=== PATIENT | male | born 1970 | race Caucasian/White ===

== ENCOUNTER 2025-04-14 12:36 | Inpatient (IN) | payer BC ==
[2025-04-14] VITALS (8 sets, daily range): BP systolic 95–97; BP diastolic 51–62; TEMP 98.1; O2SAT 93–98
[~2025-04-14] VITALS: Ht 180.3 cm; Wt 92.1 kg
[2025-04-14 13:16] LABS: PLATELET COUNT (AUTO) 184 K/uL (150-450); RED BLOOD CELL COUNT(AUTO) 5.51 MIL/uL (4.5-6.0); RED CELL DISTRIBUTION WIDTH 17.9 % (11.5-15.0); WHITE BLOOD COUNT (AUTO) 8.6 K/uL (4.3-11.0)
[2025-04-14 13:20] LABS: CALCIUM, SERUM 9.5 mg/dL (8.5-10.1); CREATININE 1.4 mg/dL (0.6-1.3); SODIUM SERUM 135 mmol/L (136-145); UREA NITROGEN, BLOOD 12 mg/dL (7-18)
[2025-04-14] MEDS ORDERED: IPRATROPIUM NEB FS 0.5 MG/2.5 ML AMPUL.NEB ONE (13:23)
[2025-04-14] MEDS ORDERED: ALBUTEROL FS 2.5 MG/3 ML VIAL.NEB ONE (13:23)
[2025-04-14 13:26] LABS: ASPARTATE AMINOTRANSFERASE 64 U/L (15-37); TOTAL PROTEIN, SERUM 7.8 g/dL (6.4-8.2)
[2025-04-14] MEDS ORDERED: IOHEXOL-300 100 ML VIAL IV ONE (13:30)
[2025-04-14] MEDS: IV NS 0.9% 1,000 ML BAG IV ONE ×2 (13:30→15:30)
[2025-04-14] MEDS: ALBUTEROL FS 2.5 MG/3 ML VIAL.NEB NEB ONE (13:31)
[2025-04-14] MEDS ORDERED: IV NS 0.9% 250 ML IV ONE (13:31)
[2025-04-14] MEDS: IPRATROPIUM NEB FS 0.5 MG/2.5 ML AMPUL.NEB NEB ONE (13:31)
[2025-04-14 13:34] LABS: LACTIC ACID 2.8 mmol/L (0.4-2.0)
[2025-04-14 13:52] LABS: INR 1.06 (0.91-1.10)
[2025-04-14] MEDS: PIPERACILLIN /TAZOBACTAM 3.375 G in IV D5W 50 ML IV ONE (14:00)
[2025-04-14] MEDS ORDERED: FLUT16SP16 NS (14:14)
[2025-04-14] MEDS ORDERED: QUET50TA PO (14:14)
[2025-04-14] MEDS ORDERED: GABA300C PO (14:14)
[2025-04-14] MEDS ORDERED: MULT-594 PO (14:14)
[2025-04-14] MEDS ORDERED: BACL10TA PO (14:14)
[2025-04-14] MEDS ORDERED: LORA10TA7 PO (14:14)
[2025-04-14] MEDS ORDERED: HYDR25CA PO (14:14)
[2025-04-14] MEDS ORDERED: CARI3CAP PO (14:14)
[2025-04-14] MEDS ORDERED: TRELEGY ELLIPTA IH (14:14)
[2025-04-14] MEDS ORDERED: CALC-1143 PO (14:14)
[2025-04-14] MEDS ORDERED: ASCO100058 PO (14:14)
[2025-04-14] MEDS ORDERED: MAGN100T PO (14:14)
[2025-04-14] MEDS ORDERED: DILT180C93 PO (14:14)
[2025-04-14] MEDS ORDERED: FAMO20TA80 PO (14:14)
[2025-04-14] MEDS ORDERED: PSYL0.4C2 PO (14:14)
[2025-04-14] MEDS ORDERED: PANT40TA2 PO (14:14)
[2025-04-14] MEDS ORDERED: ACET-2030 PO (14:14)
[2025-04-14] MEDS ORDERED: ALBU8.5H8 IH (14:14)
[2025-04-14] MEDS ORDERED: SERT50TA PO (14:14)
[2025-04-14] MEDS ORDERED: PIPERACI/TAZO 3.375GM/D5W 50ML PB IV ONE (14:37)
[2025-04-14] MEDS ORDERED: BACLOFEN (10 MG) 10 MG TABLET PO PRN (16:00)
[2025-04-14] MEDS ORDERED: MAG HYDROX/AL HYDROX/SIMETH 30 ML UDC PO PRN (16:00)
[2025-04-14] MEDS ORDERED: MAGNESIUM HYDROXIDE 30 ML UDC PO PRN (16:00)
[2025-04-14] MEDS ORDERED: ONDANSETRON HCL/PF 4 MG/2 ML VIAL IVP PRN (16:00)
[2025-04-14] MEDS ORDERED: Medication Not On Formulary EA ([Trelegy Ellipta] 1 PUFF) IH PRN (16:00)
[2025-04-14] MEDS ORDERED: GABAPENTIN 300 MG CAPSULE PO PRN (16:00)
[2025-04-14] MEDS ORDERED: ACETAMINOPHEN 325 MG TABLET PO PRN (16:00)
[2025-04-14] MEDS ORDERED: HYDROCODONE/APAP 10/325MG TABLET PO PRN (16:00)
[2025-04-14] MEDS ORDERED: Z GUARD REMEDY 4 OZ OINT TP PRN (16:00)
[2025-04-14] MEDS ORDERED: QUETIAPINE FUMARATE 25 MG TABLET PO PRN (16:30)
[2025-04-14] MEDS ORDERED: ALBUTEROL FS 2.5 MG/3 ML VIAL.NEB NEB PRN (16:30)
[2025-04-14 17:25] LABS: APPEARANCE,URINE CLEAR (CLEAR); BLOOD, URINE NEGATIVE Ery/uL (NEGATIVE); LEUKOCYTE ESTERASE ,URINE NEGATIVE (NEGATIVE); NITRITE, URINE NEGATIVE (NEGATIVE); UGLUCOSE NEGATIVE (NEGATIVE)
[2025-04-14] MEDS ORDERED: FLUTICASONE PROPIONATE 16 GM BOTTLE NS PRN (18:00)
[2025-04-14] MEDS ORDERED: PIPERACILLIN /TAZOBACTAM 3.375 G in IV D5W 50 ML IV SCH (18:00)
[2025-04-14] MEDS: IV NS 0.9% 1,000 ML IV PRN (18:05)
[2025-04-14] MEDS: NICOTINE PATCH (14MG) 14 MG PATCH.TD24 TD SCH (18:17)
[2025-04-14] MEDS: PIPERACILLIN /TAZOBACTAM 3.375 G in IV D5W 100 ML IV SCH (19:15)
[2025-04-14] MEDS: ALBUTEROL FS 2.5 MG/3 ML VIAL.NEB NEB SCH (20:29)
[2025-04-14] MEDS: IPRATROPIUM NEB FS 0.5 MG/2.5 ML AMPUL.NEB NEB SCH (20:29)
[2025-04-14] MEDS ORDERED: MAGNESIUM GLYCINATE 400 MG PO SCH (22:00)
[2025-04-15] VITALS (11 sets, daily range): BP systolic 102–111; BP diastolic 67–83; TEMP 97.2–97.7; O2SAT 94–99
[2025-04-15 06:41] LABS: PLATELET COUNT (AUTO) 175 K/uL (150-450); RED BLOOD CELL COUNT(AUTO) 5.03 MIL/uL (4.5-6.0); RED CELL DISTRIBUTION WIDTH 18.4 % (11.5-15.0); WHITE BLOOD COUNT (AUTO) 11.4 K/uL (4.3-11.0)
[2025-04-15 07:13] LABS: ASPARTATE AMINOTRANSFERASE 37.0 U/L (15-37); CALCIUM, SERUM 8.7 mg/dL (8.5-10.1); CREATININE 1.2 mg/dL (0.6-1.3); PHOSPHORUS 2.9 mg/dL (2.5-4.9); SODIUM SERUM 140.0 mmol/L (136-145); TOTAL PROTEIN, SERUM 7.0 g/dL (6.4-8.2); UREA NITROGEN, BLOOD 14.0 mg/dL (7-18)
[2025-04-15 07:54] LABS: LACTIC ACID 3.2 mmol/L (0.4-2.0)
[2025-04-15] MEDS: CALCIUM CARBONATE 500 MG TAB.CHEW PO SCH (08:23)
[2025-04-15] MEDS: PANTOPRAZOLE 40 MG VIAL IV SCH (08:23)
[2025-04-15] MEDS: MULTIVITAMINS,THERAGRAN 1 UDTAB TABLET PO SCH (08:23)
[2025-04-15] MEDS: SERTRALINE HCL 50 MG TABLET PO SCH (08:23)
[2025-04-15] MEDS: ASCORBIC ACID 500 MG TABLET PO SCH (08:23)
[2025-04-15] MEDS: PSYLLIUM SEED 1 PKT PACKET PO SCH (08:23)
[2025-04-15] MEDS: DILTIAZEM HCL CD 180 MG PO SCH (08:24)
[2025-04-15] MEDS ORDERED: PANTOPRAZOLE 40 MG TABLET.DR PO SCH (09:00)
[2025-04-15] MEDS ORDERED: CARIPRAZINE HCL 3 MG PO SCH (09:00)
[2025-04-15] MEDS: IV D5/ 0.9% NACL 1,000 ML IV PRN (14:02)
[2025-04-15 16:33] LABS: HIV-1/2 ANTIBODY NON REACTIVE (NONREACTIVE)
[2025-04-15 19:32] LABS: CREATININE, URINE 149.1 MG/DL (30.0-125.0); URINE SODIUM, RANDOM 104.0 mmol/l (40-220); URINE TOTAL PROTEIN 77.8 mg/dL (0-11.9)
[2025-04-15] MEDS: TEMAZEPAM 7.5 MG CAPSULE PO PRN (23:22)
[2025-04-16] VITALS (11 sets, daily range): BP systolic 98–121; BP diastolic 66–79; TEMP 97.3–98.1; O2SAT 95–99
[2025-04-16 06:27] LABS: PLATELET COUNT (AUTO) 199 K/uL (150-450); RED BLOOD CELL COUNT(AUTO) 4.98 MIL/uL (4.5-6.0); RED CELL DISTRIBUTION WIDTH 19.2 % (11.5-15.0); WHITE BLOOD COUNT (AUTO) 11.3 K/uL (4.3-11.0)
[2025-04-16 06:36] LABS: CALCIUM, SERUM 9.2 mg/dL (8.5-10.1); CREATININE 1.0 mg/dL (0.6-1.3); SODIUM SERUM 143.0 mmol/L (136-145); UREA NITROGEN, BLOOD 19.0 mg/dL (7-18)
[2025-04-16 06:47] LABS: ASPARTATE AMINOTRANSFERASE 18 U/L (15-37); TOTAL PROTEIN, SERUM 7.4 g/dL (6.4-8.2)
[2025-04-16 07:19] LABS: LACTIC ACID 2.0 mmol/L (0.4-2.0)
[2025-04-16] MEDS: CALCIUM CARBONATE 500 MG TAB.CHEW PO PRN (11:24)
[2025-04-17] VITALS: BP 116/80; TEMP 97.4; O2SAT 98
[2025-04-17 06:56] LABS: PLATELET COUNT (AUTO) 220 K/uL (150-450); RED BLOOD CELL COUNT(AUTO) 4.91 MIL/uL (4.5-6.0); RED CELL DISTRIBUTION WIDTH 18.7 % (11.5-15.0); WHITE BLOOD COUNT (AUTO) 9.4 K/uL (4.3-11.0)
[2025-04-17 07:03] LABS: CALCIUM, SERUM 9.2 mg/dL (8.5-10.1); CREATININE 0.9 mg/dL (0.6-1.3); SODIUM SERUM 143.0 mmol/L (136-145); UREA NITROGEN, BLOOD 18.0 mg/dL (7-18)
[2025-04-17 07:31] VITALS: O2SAT 96
[2025-04-17 07:36] VITALS: O2SAT 99
[2025-04-17 08:00] VITALS: BP 127/79; TEMP 97.5; O2SAT 97
[2025-04-17] MEDS: PANTOPRAZOLE 40 MG TABLET.DR PO SCH (08:53)
[2025-04-17 08:54] VITALS: BP 127/79
[2025-04-17] MEDS ORDERED: METH4TAB17 PO (11:16)
[2025-04-17] MEDS ORDERED: AMOX-430 PO (11:16)
[2025-04-17] MEDS ORDERED: IPRA0.2S9 NEB (11:16)
[2025-04-17] MEDS ORDERED: ALBUT2 NEB (11:16)
[2025-04-17] MEDS ORDERED: NICO-676 TD (11:16)
[2025-04-17] MEDS ORDERED: PANT40TA49 PO (11:16)
[2025-04-17] MEDS ORDERED: CALC500T63 PO (11:16)
== END 2025-04-17 13:40 | DRG 871 ==
LOC: ER 12:40 → TELE 17:07
PROVIDERS: ADMIT Nurse Practitioner Acute Care; ATTEND Nurse Practitioner Acute Care
DX: A41.9 Sepsis, unspecified organism (principal); J96.01 Acute respiratory failure with hypoxia; N17.0 Acute kidney failure with tubular necrosis; E87.1 Hypo-osmolality and hyponatremia; E87.20 Acidosis, unspecified; J44.1 Chronic obstructive pulmonary disease with (acute) exacerbation; K57.92 Diverticulitis of intestine, part unspecified, without perforation or abscess without bleeding; Z87.01 Personal history of pneumonia (recurrent); I10 Essential (primary) hypertension; F10.10 Alcohol abuse, uncomplicated; F41.9 Anxiety disorder, unspecified; Z79.51 Long term (current) use of inhaled steroids; Z79.899 Other long term (current) drug therapy; M89.8X9 Other specified disorders of bone, unspecified site; Z71.6 Tobacco abuse counseling; F17.210 Nicotine dependence, cigarettes, uncomplicated; E86.9 Volume depletion, unspecified; R74.01 Elevation of levels of liver transaminase levels; Y90.9 Presence of alcohol in blood, level not specified; Z99.81 Dependence on supplemental oxygen
CPT/HCPCS: 36415; 71045-TC; 80048-TC; 80053-TC; 80076-TC; 82570-TC; 83605-TC; 83690-TC; 83735-TC; 84100-TC; 84300-TC; 84484-TC; 85025-TC; 85730-TC; 86803; 87040-TC; 87081-TC; 87086-TC; 87186-TC; 87806; 94760-TC; 94799-TC; A4223; G0378; J2470; J2543; J2919; J7030; J7040; J7042; J7050; J7060; Q0177; Q9967